=== PATIENT | male | born 1940 | race Caucasian/White ===

== ENCOUNTER → 2016-08-09 | Day surgery (SDC) | payer MEDICARE, OTHER ==
[~2016-08-09] VITALS: Ht 175.3 cm; Wt 88.1 kg
[~2016-08-09] MED LIST: ASPIRIN EC81 MG PO; DELTASONE5 MG PO; DESYREL50 MG PO; FISH OIL 1,0001 EACH PO; FLAX SEED OIL1000 MG PO; FOLIC ACID1 MG PO; HYDRODIURIL25 MG PO; IMDUR30 MG PO; METHOTREXATE25 MG/ML IM; NITROSTAT0.4 MG SL; NORCO 5-325 MG1 TAB PO; NORVASC10 MG PO; PLAVIX75 MG PO; PRILOSEC20 MG PO; PRINIVIL OR ZES10 MG PO; RHEUMATREX2.5 MG
--- NOTE | ~2016-08-09 | OR ---
PATIENT'S NAME: JOHNSON BREEN [facility] AGE: 76 Y [address] ROOM: [place] [id number] LOCATION: [facility] – [place] ADMIT DATE: 08/09/2016 OR/Procedure Report DISCHARGE DATE: FAMILY PHYSICIAN: Mitchell Horton MD ATTENDING PHYSICIAN: Angus Cole SURGEON: Angus Cole MD MANAGER SOFTWARE: DATE OF PROCEDURE: 08/09/2016 PREOPERATIVE DIAGNOSES: 1. 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 2. Remote history of prostate cancer. 3. Coronary artery disease. 4. History of esophageal stricture. 5. History of recent hip replacement. POSTOPERATIVE DIAGNOSES: 1. 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 2. Remote history of prostate cancer. 3. Coronary artery disease. 4. History of esophageal stricture. 5. History of recent hip replacement. 6. Pathology pending. PROCEDURE: 1. Cystoscopy and retrograde. 2. Transurethral resection of recurrence. ANESTHESIA: Sedation. INDICATION: This is a 76-year-old gentleman who diagnosed in the fall of 2015 with a urothelial carcinoma. He had extensive tumor in his bladder, but it was low-grade and noninvasive. Based on the volume of tumor, I had recommended BCG therapy. He underwent that. He had a negative surveillance in April. On July 24, he underwent surveillance cystoscopy, he had papillary recurrence just off the scar on the left side. He presents at this time for cystoscopy, upper tract evaluation, and resection of this area of recurrence. DESCRIPTION OF PROCEDURE: Having obtained his informed consent, the patient has been taken to the operating room. He has prepped draped sterilely and in lithotomy position. IV sedation was administered. A 21-Swedish cystoscope was assembled and guided into the urethra. The course of the urethra was PATIENT'S NAME: JOHNSON BREEN [facility] AGE: 76 Y [address] ROOM: [place] [address] LOCATION: [facility] [place] ADMIT DATE: 08/09/2016 OR/Procedure Report DISCHARGE DATE: FAMILY PHYSICIAN: Mitchell Horton MD ATTENDING PHYSICIAN: Angus Cole unremarkable, back to the prostate, which is surgically absent. Sphincter is intact. He has no issues with incontinence. Moving in the bladder, we see a lot of scar on the left side as previous. We visualized the tumor as noted on his surveillance cystoscopy. Bladder examination was confirmed with a 70- degree lens. Under fluoroscopy, we can see some clips in the pelvis from his prior prostatectomy. Preliminary survey was otherwise unremarkable. Contrast is instilled bilaterally. The ureters are pristine. The calices were finely cupped. There was no evidence of obstruction nor any filling defects. The resectoscope was now placed. Using a single loop, I removed the obvious tumor. That was sent to pathology. I then cauterized the periphery and the base. A check was made for hemostasis. The bladder was drained and the case was concluded. The patient tolerated the procedure well. Blood loss was negligible. No specimens were sent. The patient returned to the outpatient recovery, awake, and in stable condition. ANGUS COLE MD SFH/modl /[id number] CC: Mitchell Horton MD d: 08/09/16 1150 t: 08/20/16 1448, OPERATIVE SUMMARY
[2016-08-09 08:58] LABS: BASOPHIL % 0.6 %; EOSINOPHIL # 0.3 K/uL (0.0-0.5); EOSINOPHIL % 3.6 %; HEMATOCRIT 40.4 % (37.0-53.0); HEMOGLOBIN 13.3 g/dL (11.0-16.0); IMMATURE GRANULOCYTE % 0.3 %; LYMPHOCYTE # 1.7 K/uL (0.8-4.0); LYMPHOCYTE % 24.1 %; MCH 29.6 pg (27.0-34.0); MCHC 32.9 gm/dL (32.0-36.5); MONOCYTE # 0.6 K/uL (0.0-1.0); MONOCYTE % 8.9 %; MPV 10.4 fl (9.4-12.4); NEUTROPHIL # (ANC) 4.3 K/uL (1.4-9.0); NEUTROPHIL % 62.5 %; NRBC % 0 /100WBC (0-0.00); PLATELET COUNT 164 K/uL (150-450); RBC 4.49 M/uL (3.50-5.50); RDW-CV 14.5 % (11.9-14.6); WBC 6.9 K/uL (4.0-11.0)
[2016-08-09 09:15] LABS: ALBUMIN 3.5 gm/dL (3.5-5.0); CALCIUM 8.4 mg/dL (8.5-10.5); CREATININE 1.3 mg/dL (0.6-1.3); TOTAL BILIRUBIN 0.8 mg/dL (0.0-1.5); TOTAL PROTEIN 6.5 g/dL (6.0-8.4)
== END | disposition disaster alternative care site (69) ==
LOC: GPOC 07-25 10:00 → GSDC 08:30
PROVIDERS: Urology
PROC: BT1FYZZ Fluoroscopy of Left Kidney, Ureter and Bladder using Other Contrast (ICD-10-PCS; principal; 2016-08-09)
PROC: 0TBB8ZZ Excision of Bladder, Via Natural or Artificial Opening Endoscopic (ICD-10-PCS; 2016-08-09)
DX: N30.00 Acute cystitis without hematuria (principal); N30.20 Other chronic cystitis without hematuria; I25.810 Atherosclerosis of coronary artery bypass graft(s) without angina pectoris; I10 Essential (primary) hypertension; Z85.51 Personal history of malignant neoplasm of bladder; Z85.46 Personal history of malignant neoplasm of prostate; Z88.9 Allergy status to unspecified drugs, medicaments and biological substances
CPT/HCPCS: J1956; J7120

== ENCOUNTER → 2016-12-18 | Outpatient (CLI) | payer MEDICARE, OTHER | END | disposition disaster alternative care site (69) | LOC: GRAD 12:29 | DX: M54.16 Radiculopathy, lumbar region (principal); M54.40 Lumbago with sciatica, unspecified side; M47.26 Other spondylosis with radiculopathy, lumbar region; M48.06 Spinal stenosis, lumbar region; M48.07 Spinal stenosis, lumbosacral region ==

== ENCOUNTER → 2016-12-27 | Day surgery (SDC) | payer MEDICARE, OTHER ==
[~2016-12-27] VITALS: Ht 175.3 cm; Wt 91.9 kg
--- NOTE | ~2016-12-27 | OR ---
PATIENT'S NAME: JOHNSON BREEN [facility] AGE: 76 Y [address] ROOM: [place] [id number] [place] [facility] [place]: 12/27/2016 OR/Procedure Report DISCHARGE DATE: FAMILY PHYSICIAN: Mitchell Horton MD ATTENDING PHYSICIAN: Zaida Gray SURGEON: Mark Mary MD PLATE PUT IN WORKER: DATE OF PROCEDURE: 12/27/2016 PROCEDURE: Right L3 transforaminal epidural steroid injection. INDICATION: The patient has degenerative lumbar disk disease with radiculopathy, spondylolisthesis, and canal stenosis. Risks, benefits, and alternatives were explained to the patient. He wished to proceed. DESCRIPTION OF PROCEDURE: He was taken to the procedure room and placed in the prone position. Back was prepped with Betadine x3. Sterile drape applied over top. Fluoroscopy was used to identify the L3-L4 interspace. 3 mL of 1% lidocaine was injected to numb the skin. Next, a 22-gauge 3.5-inch needle was advanced into position using a fluoroscopic guidance. Once this was felt to be in position, 1 mL of contrast was injected in the AP and lateral view, showing good epidural spread, no intravascular uptake, no intrathecal uptake. Next, a mixture of 2 mL of 2% lidocaine and 10 mg of preservative-free Decadron were injected without complication. The stylette placed, needle withdrawn, and hemostasis achieved. BLOOD LOSS: None. COMPLICATIONS: None. For future injections, recommend using a 5-inch needle. MARK MARY MD JJP/modl /[id number] d: t: 12/27/161944, OPERATIVE SUMMARY
== END ==
LOC: GPOC 12-25 15:00 → GSDC 11:57
PROC: 3E0R3BZ Introduction of Anesthetic Agent into Spinal Canal, Percutaneous Approach (ICD-10-PCS; principal; 2016-12-27)
PROC: 3E0R33Z Introduction of Anti-inflammatory into Spinal Canal, Percutaneous Approach (ICD-10-PCS; 2016-12-27)
DX: M51.16 Intervertebral disc disorders with radiculopathy, lumbar region (principal); M48.06 Spinal stenosis, lumbar region; M43.16 Spondylolisthesis, lumbar region; K21.9 Gastro-esophageal reflux disease without esophagitis; M06.9 Rheumatoid arthritis, unspecified; I25.10 Atherosclerotic heart disease of native coronary artery without angina pectoris; I10 Essential (primary) hypertension; E78.00 Pure hypercholesterolemia, unspecified; Z96.641 Presence of right artificial hip joint; Z79.899 Other long term (current) drug therapy; Z95.0 Presence of cardiac pacemaker; Z87.891 Personal history of nicotine dependence; Z79.82 Long term (current) use of aspirin; Z85.46 Personal history of malignant neoplasm of prostate
CPT/HCPCS: J1100